=== PATIENT | male | born 1960 | race Caucasian/White ===

== ENCOUNTER 2023-11-29 09:49 | Day surgery (SDC) | payer BC ==
[~2023-11-29] VITALS: Ht 180.3 cm; Wt 126.4 kg
[2023-11-29] MEDS: LIDOCAINE 3.5 % 1ML OPHTH TOPICAL GEL OU ONE (06:00)
[2023-11-29] MEDS: OFLOXACIN 0.3 % (OCUFLOX) OPTH SOL 5ML OS ONE (06:00)
[~2023-11-29 09:49] MED LIST: IRBE150T14 PO; PHENYLEPHRINE 10% OPHTH SOL 5ML OS PRN; ROSU10TA61 PO
[2023-11-29] MEDS: ATROPINE SULFATE 1% OPHTH SOLN 2ML BTL OS SCH (10:30)
[2023-11-29] MEDS: TROPICAMIDE 1% OPHTH SOLN 15ML OS SCH (10:30)
[2023-11-29] MEDS: PHENYLEPHRINE 2.5% OPHTH SOL 2ML OS SCH (10:31)
[2023-11-29] MEDS ORDERED: fentaNYL 100 MCG/2 ML INJECTION As Ordered ONE (10:52)
[2023-11-29] MEDS ORDERED: MIDAZOLAM INJ 2MG/2ML VIAL As Ordered ONE (10:52)
[2023-11-29] MEDS: BSS IRRIG/VANCO(10MG)/TOBRA(5MG)/EPINEPH(1:1000-0.5CC)500ML BAG-ORONLY As Ordered ONE (11:11)
[2023-11-29] MEDS: LIDOCAINE 1% SDV 5ML VIAL As Ordered ONE (11:12)
[2023-11-29] MEDS: CEFUROXIME 1MG/0.1ML INTRACAMERAL INJ As Ordered ONE (11:12)
[2023-11-29 11:28] VITALS: BP 127/64; TEMP 96.7; O2SAT 96
== END 2023-11-29 11:40 | disposition home or self-care (01) ==
LOC: M SDC 09:49
PROVIDERS: ATTEND Ophthalmology
DX: H25.12 Age-related nuclear cataract, left eye (principal); I10 Essential (primary) hypertension; E78.5 Hyperlipidemia, unspecified; Z87.891 Personal history of nicotine dependence; Z79.899 Other long term (current) drug therapy
CPT/HCPCS: 66984; J0697; J2250; J3010

== ENCOUNTER 2023-12-13 09:56 | Day surgery (SDC) | payer BC ==
[~2023-12-13] VITALS: Ht 180.3 cm; Wt 126.0 kg
[~2023-12-13 09:56] MED LIST changes: +PHENYLEPHRINE 10% OPHTH SOL 5ML OD PRN; -PHENYLEPHRINE 10% OPHTH SOL 5ML OS PRN
[2023-12-13] MEDS: LIDOCAINE 3.5 % 1ML OPHTH TOPICAL GEL OU ONE (11:34)
[2023-12-13] MEDS: PHENYLEPHRINE 2.5% OPHTH SOL 2ML OD SCH (11:34)
[2023-12-13] MEDS: TROPICAMIDE 1% OPHTH SOLN 15ML OD SCH (11:34)
[2023-12-13] MEDS: ATROPINE SULFATE 1% OPHTH SOLN 2ML BTL OD SCH (11:34)
[2023-12-13] MEDS: OFLOXACIN 0.3 % (OCUFLOX) OPTH SOL 5ML OD ONE (11:34)
[2023-12-13] MEDS: LIDOCAINE 1% SDV 5ML VIAL As Ordered ONE (12:43)
[2023-12-13] MEDS: CEFUROXIME 1MG/0.1ML INTRACAMERAL INJ As Ordered ONE (12:43)
[2023-12-13] MEDS: BSS IRRIG/VANCO(10MG)/TOBRA(5MG)/EPINEPH(1:1000-0.5CC)500ML BAG-ORONLY As Ordered ONE (12:43)
[2023-12-13] MEDS ORDERED: MIDAZOLAM INJ 2MG/2ML VIAL As Ordered ONE (12:44)
[2023-12-13] MEDS ORDERED: fentaNYL 100 MCG/2 ML INJECTION As Ordered ONE (12:44)
[2023-12-13 12:57] VITALS: BP 117/57; TEMP 97; O2SAT 95
== END 2023-12-13 13:26 | disposition home or self-care (01) ==
LOC: M SDC 09:56
PROVIDERS: ATTEND Ophthalmology
DX: H25.11 Age-related nuclear cataract, right eye (principal); I10 Essential (primary) hypertension; E78.00 Pure hypercholesterolemia, unspecified; Z79.899 Other long term (current) drug therapy; Z87.891 Personal history of nicotine dependence